=== PATIENT | male | born 1930 | race Caucasian/White ===

== ENCOUNTER 2018-04-06 15:41 | Inpatient (IN) | payer MEDICARE, BC ==
[2018-04-06] MEDS ORDERED: LACTULOSE 30ML CUP PO (16:30)
[2018-04-06] MEDS ORDERED: BISACODYL 10 MG SUPP PR (16:30)
[2018-04-06] MEDS ORDERED: MAGNESIUM HYDROXIDE 30ML CUP PO (16:30)
[2018-04-06] MEDS ORDERED: PENDING SANTYL ORDER FOR WOUND CARE XX (17:00)
[2018-04-06] MEDS ORDERED: IPRATROPIUM (NEB) 0.5 MG/2.5 ML AMP HHN (20:00)
[2018-04-06] MEDS ORDERED: ALBUTEROL 0.083% (NEB) 2.5 MG/3 ML AMP HHN (20:00)
[2018-04-06] MEDS: CALCIUM/VITAMIN D (500/200) TAB PO (20:49)
[2018-04-06] MEDS ORDERED: SENNA TAB PO (21:00)
[2018-04-06] MEDS ORDERED: DOCUSATE SODIUM 100 MG CAP PO (21:00)
[2018-04-07] MEDS: PANTOPRAZOLE (EC) 40 MG TAB PO (06:48)
[2018-04-07] MEDS: BICALUTAMIDE 50 MG TAB PO ×3 (08:26→12:59)
[2018-04-07 08:35] LABS: ADD MAN DIFF? NO
[2018-04-07 08:39] LABS: WHITE BLOOD COUNT 13.5 10^3/ul (4.8-10.8)
[2018-04-07 08:39] LABS: BASOPHIL # 0.1 10^3/ul (0.0-0.1); BASOPHILS % 0.4 % (0.0-2.0); EOSINOPHILS # 0.2 10^3/ul (0.0-0.5); EOSINOPHILS % 1.3 % (0.0-7.0); HEMATOCRIT 24.4 % (42.0-52.0); HEMOGLOBIN 7.8 g/dl (14.0-18.0); LYMPHOCYTES # 2.3 10^3/ul (0.8-2.9); LYMPHOCYTES % 17.2 % (15.0-51.0); MEAN CORPUSCULAR VOLUME 90.7 fl (82.0-101.0); MEAN PLATELET VOLUME 9.9 fl (7.4-10.4); MONOCYTE # 1.4 10^3/ul (0.3-0.9); MONOCYTES % 10.2 % (0.0-11.0); NEUTROPHIL # 9.3 10^3/ul (1.6-7.5); NEUTROPHILS % 69.3 % (39.0-77.0); PLATELET COUNT 240 10^3/UL (140-415); RED BLOOD COUNT 2.69 10^6/ul (4.70-6.10); RED CELL DISTRIBUTION WIDTH 16.2 % (11.5-14.5)
[2018-04-07 09:00] LABS: ALANINE AMINOTRANSFERASE 21 IU/L (13-69); ALBUMIN 3.2 g/dl (3.3-4.9); ALKALINE PHOSPHATASE 41 IU/L (42-121); ANION GAP 12 (8-16); ASPARTATE AMINO TRANSFERASE 19 IU/L (15-46); BILIRUBIN,INDIRECT 0.7 mg/dl (0-1.1); BILIRUBIN,TOTAL 0.7 mg/dl (0.2-1.3); BLOOD UREA NITROGEN 55 mg/dl (7-20); CALCIUM 9.5 mg/dl (8.4-10.2); CARBON DIOXIDE 25 mmol/L (21-31); CHLORIDE 103 mmol/L (97-110); CREATININE 2.77 mg/dl (0.61-1.24); GLUCOSE 93 mg/dl (70-220); POTASSIUM 3.9 mmol/L (3.5-5.1); SODIUM 136 mmol/L (135-144); TOTAL PROTEIN 6.4 g/dl (6.1-8.1)
[2018-04-07] MEDS: AZITHROMYCIN 250 MG TAB PO ×2 (09:00→13:01)
[2018-04-07] MEDS: ATORVASTATIN 20 MG TAB PO (09:15)
[2018-04-07] MEDS: FINASTERIDE 5 MG TAB PO (09:15)
[2018-04-07] MEDS: CLOPIDOGREL 75 MG TAB PO (09:15)
[2018-04-07] MEDS: CYANOCOBALAMIN 500 MCG TAB PO (09:15)
[2018-04-07] MEDS: ASPIRIN 81 MG TAB PO (09:15)
[2018-04-07] MEDS: ISOSORBIDE MONONITRATE(SR)60 MG TAB PO (09:15)
[2018-04-07] MEDS: OXYBUTYNIN (XL) 5 MG TAB PO (09:15)
[2018-04-07] MEDS: CALCIUM/VITAMIN D (500/200) TAB PO ×2 (09:16→21:06)
[2018-04-07] MEDS: SOD CHLORIDE 0.9% 500 ML IV (10:58)
[2018-04-07 19:58] LABS: HEPATITIS B SURFACE ANTIGEN NEGATIVE (NEGATIVE)
[2018-04-07 21:43] LABS: HEPATITIS B SURFACE ANTIBODY POSITIVE (NEGATIVE)
[2018-04-07 22:42] LABS: ADD UMIC NO; UR ASCORBIC ACID NEGATIVE (NEGATIVE); UR BILIRUBIN (Dip) NEGATIVE (NEGATIVE); UR BLOOD (Dip) NEGATIVE (NEGATIVE); UR CLARITY CLEAR (CLEAR); UR COLOR YELLOW (YELLOW); UR GLUCOSE (Dip) NEGATIVE (NEGATIVE); UR KETONES (Dip) NEGATIVE (NEGATIVE); UR LEUKOCYTE ESTERASE (Dip) NEGATIVE Leu/ul (NEGATIVE); UR NITRITE (Dip) NEGATIVE (NEGATIVE); UR SPECIFIC GRAVITY (Dip) 1.009 (1.003-1.030); UR TOTAL PROTEIN (Dip) NEGATIVE (NEGATIVE); UR UROBILINOGEN (Dip) NEGATIVE (NEGATIVE)
[2018-04-08] MEDS: PANTOPRAZOLE (EC) 40 MG TAB PO (05:40)
[2018-04-08 07:01] LABS: ADD MAN DIFF? NO
[2018-04-08 07:04] LABS: WHITE BLOOD COUNT 12.9 10^3/ul (4.8-10.8)
[2018-04-08 07:04] LABS: ABNORMAL IP MESSAGE 1; BASOPHILS % 0.3 % (0.0-2.0); EOSINOPHILS # 0.2 10^3/ul (0.0-0.5); EOSINOPHILS % 1.6 % (0.0-7.0); HEMATOCRIT 20.9 % (42.0-52.0); LYMPHOCYTES # 2.3 10^3/ul (0.8-2.9); LYMPHOCYTES % 17.9 % (15.0-51.0); MEAN CORPUSCULAR HEMOGLOBIN 28.8 pg (29.0-33.0); MEAN CORPUSCULAR HGB CONC 32.5 g/dl (32.0-37.0); MEAN CORPUSCULAR VOLUME 88.6 fl (82.0-101.0); MEAN PLATELET VOLUME 9.8 fl (7.4-10.4); MONOCYTE # 1.2 10^3/ul (0.3-0.9); MONOCYTES % 9.5 % (0.0-11.0); NEUTROPHIL # 8.8 10^3/ul (1.6-7.5); NEUTROPHILS % 68.5 % (39.0-77.0); PLATELET COUNT 238 10^3/UL (140-415); POSITIVE DIFF @See below; RED BLOOD COUNT 2.36 10^6/ul (4.70-6.10); RED CELL DISTRIBUTION WIDTH 15.9 % (11.5-14.5)
[2018-04-08 07:22] LABS: HEMOGLOBIN 6.8 g/dl (14.0-18.0)
[2018-04-08 07:38] LABS: ANION GAP 13 (8-16); BLOOD UREA NITROGEN 65 mg/dl (7-20); CALCIUM 9.5 mg/dl (8.4-10.2); CARBON DIOXIDE 25 mmol/L (21-31); CHLORIDE 102 mmol/L (97-110); CREATININE 2.92 mg/dl (0.61-1.24); GLUCOSE 97 mg/dl (70-220); MAGNESIUM 1.9 mg/dl (1.7-2.5); PHOSPHORUS 3.9 mg/dl (2.5-4.9); POTASSIUM 3.7 mmol/L (3.5-5.1); SODIUM 136 mmol/L (135-144)
[2018-04-08 09:00] LABS: HEMATOCRIT 22.8 % (42.0-52.0); HEMOGLOBIN 7.3 g/dl (14.0-18.0)
[2018-04-08] MEDS: AZITHROMYCIN 250 MG TAB PO (09:28)
[2018-04-08] MEDS: CALCIUM/VITAMIN D (500/200) TAB PO ×2 (09:29→20:56)
[2018-04-08] MEDS: CLOPIDOGREL 75 MG TAB PO (09:29)
[2018-04-08] MEDS: CYANOCOBALAMIN 500 MCG TAB PO (09:29)
[2018-04-08] MEDS: ASPIRIN 81 MG TAB PO (09:29)
[2018-04-08] MEDS: ATORVASTATIN 20 MG TAB PO (09:29)
[2018-04-08] MEDS: FINASTERIDE 5 MG TAB PO (09:29)
[2018-04-08] MEDS: OXYBUTYNIN (XL) 5 MG TAB PO (09:29)
[2018-04-08] MEDS: BICALUTAMIDE 50 MG TAB PO (09:30)
[2018-04-08] MEDS: ISOSORBIDE MONONITRATE(SR)60 MG TAB PO (09:35)
[2018-04-08 09:55] LABS: IRON 52 ug/dl (35-150)
[2018-04-08 10:04] LABS: % IRON SATURATION 24 % SAT (22-52); TOTAL IRON BINDING CAPACITY 219 ug/dl (241-421)
[2018-04-08 11:21] LABS: ADD UMIC NO; UR ASCORBIC ACID NEGATIVE (NEGATIVE); UR BILIRUBIN (Dip) NEGATIVE (NEGATIVE); UR BLOOD (Dip) NEGATIVE (NEGATIVE); UR CLARITY CLEAR (CLEAR); UR COLOR STRAW (YELLOW); UR GLUCOSE (Dip) NEGATIVE (NEGATIVE); UR KETONES (Dip) NEGATIVE (NEGATIVE); UR LEUKOCYTE ESTERASE (Dip) NEGATIVE Leu/ul (NEGATIVE); UR NITRITE (Dip) NEGATIVE (NEGATIVE); UR SPECIFIC GRAVITY (Dip) 1.008 (1.003-1.030); UR TOTAL PROTEIN (Dip) NEGATIVE (NEGATIVE); UR UROBILINOGEN (Dip) NEGATIVE (NEGATIVE)
[2018-04-08] MEDS: EPOETIN 10000 UNITS/1 ML INJ (ESRD) SC (12:37)
[2018-04-08] MEDS: ACETAMINOPHEN 325 MG TAB PO (14:26)
[2018-04-08] MEDS ORDERED: ALBUMIN HUMAN 25% 100 ML IV (17:00)
[2018-04-08] MEDS: HEPARIN 1000 UNITS/ML 10 ML INJ CATHETER (20:43)
[2018-04-09] MEDS: PANTOPRAZOLE (EC) 40 MG TAB PO (06:21)
[2018-04-09 06:52] LABS: ADD MAN DIFF? NO
[2018-04-09 07:02] LABS: BASOPHIL # 0.1 10^3/ul (0.0-0.1); BASOPHILS % 0.4 % (0.0-2.0); EOSINOPHILS # 0.2 10^3/ul (0.0-0.5); EOSINOPHILS % 1.2 % (0.0-7.0); HEMATOCRIT 22.7 % (42.0-52.0); HEMOGLOBIN 7.3 g/dl (14.0-18.0); LYMPHOCYTES # 1.9 10^3/ul (0.8-2.9); LYMPHOCYTES % 15.3 % (15.0-51.0); MEAN CORPUSCULAR HEMOGLOBIN 28.7 pg (29.0-33.0); MEAN CORPUSCULAR HGB CONC 32.2 g/dl (32.0-37.0); MEAN CORPUSCULAR VOLUME 89.4 fl (82.0-101.0); MEAN PLATELET VOLUME 9.6 fl (7.4-10.4); MONOCYTE # 1.1 10^3/ul (0.3-0.9); NEUTROPHIL # 8.9 10^3/ul (1.6-7.5); NEUTROPHILS % 70.8 % (39.0-77.0); NUCLEATED RED BLOOD CELLS% 0.2 /100WBC (0.0-0.0); PLATELET COUNT 254 10^3/UL (140-415); RED BLOOD COUNT 2.54 10^6/ul (4.70-6.10); RED CELL DISTRIBUTION WIDTH 16.1 % (11.5-14.5)
[2018-04-09 07:02] LABS: WHITE BLOOD COUNT 12.5 10^3/ul (4.8-10.8)
[2018-04-09 08:03] LABS: ANION GAP 11 (8-16); BLOOD UREA NITROGEN 32 mg/dl (7-20); CALCIUM 9.2 mg/dl (8.4-10.2); CARBON DIOXIDE 29 mmol/L (21-31); CHLORIDE 101 mmol/L (97-110); GLUCOSE 96 mg/dl (70-220); MAGNESIUM 1.9 mg/dl (1.7-2.5); PHOSPHORUS 2.9 mg/dl (2.5-4.9); POTASSIUM 3.7 mmol/L (3.5-5.1); SODIUM 137 mmol/L (135-144)
[2018-04-09] MEDS: CLOPIDOGREL 75 MG TAB PO (08:37)
[2018-04-09] MEDS: ACETAMINOPHEN 325 MG TAB PO ×2 (08:37→21:08)
[2018-04-09] MEDS: ATORVASTATIN 20 MG TAB PO (08:37)
[2018-04-09] MEDS: ASPIRIN 81 MG TAB PO (08:37)
[2018-04-09] MEDS: BICALUTAMIDE 50 MG TAB PO (08:38)
[2018-04-09] MEDS: ISOSORBIDE MONONITRATE(SR)60 MG TAB PO (08:38)
[2018-04-09] MEDS: CALCIUM/VITAMIN D (500/200) TAB PO ×2 (08:38→21:11)
[2018-04-09] MEDS: FINASTERIDE 5 MG TAB PO (08:38)
[2018-04-09] MEDS: CYANOCOBALAMIN 500 MCG TAB PO (08:39)
[2018-04-09] MEDS: AZITHROMYCIN 250 MG TAB PO (08:39)
[2018-04-09] MEDS: OXYBUTYNIN (XL) 5 MG TAB PO (08:39)
[2018-04-09] MEDS: FLUCONAZOLE 100 MG TAB PO (12:24)
[2018-04-09] MEDS: LIDOCAINE 5% PATCH TD (12:24)
[2018-04-09 17:13] LABS: OCCULT BLOOD STOOL NEGATIVE (NEGATIVE)
[2018-04-10] MEDS: PANTOPRAZOLE (EC) 40 MG TAB PO (06:22)
[2018-04-10] MEDS: ASPIRIN 81 MG TAB PO (08:46)
[2018-04-10] MEDS: LIDOCAINE 5% PATCH TD (08:46)
[2018-04-10] MEDS: ISOSORBIDE MONONITRATE(SR)60 MG TAB PO (08:47)
[2018-04-10] MEDS: BICALUTAMIDE 50 MG TAB PO (08:47)
[2018-04-10] MEDS: OXYBUTYNIN (XL) 5 MG TAB PO (08:47)
[2018-04-10] MEDS: CYANOCOBALAMIN 500 MCG TAB PO (08:47)
[2018-04-10] MEDS: FINASTERIDE 5 MG TAB PO (08:47)
[2018-04-10] MEDS: FLUCONAZOLE 100 MG TAB PO (08:47)
[2018-04-10] MEDS: ATORVASTATIN 20 MG TAB PO (08:47)
[2018-04-10] MEDS: CALCIUM/VITAMIN D (500/200) TAB PO ×2 (08:48→19:51)
[2018-04-10] MEDS: CLOPIDOGREL 75 MG TAB PO (08:48)
[2018-04-10] MEDS: AZITHROMYCIN 250 MG TAB PO (08:48)
[2018-04-10] MEDS: ACETAMINOPHEN 325 MG TAB PO (10:17)
[2018-04-10] MEDS: HEPARIN 1000 UNITS/ML 10 ML INJ CATHETER (23:57)
[2018-04-11] MEDS: PANTOPRAZOLE (EC) 40 MG TAB PO (06:54)
[2018-04-11] MEDS: CYANOCOBALAMIN 500 MCG TAB PO (09:00)
[2018-04-11] MEDS: LIDOCAINE 5% PATCH TD (09:33)
[2018-04-11] MEDS: ISOSORBIDE MONONITRATE(SR)60 MG TAB PO (09:34)
[2018-04-11] MEDS: CALCIUM/VITAMIN D (500/200) TAB PO ×2 (09:34→20:58)
[2018-04-11] MEDS: FINASTERIDE 5 MG TAB PO (09:34)
[2018-04-11] MEDS: BICALUTAMIDE 50 MG TAB PO (09:34)
[2018-04-11] MEDS: ATORVASTATIN 20 MG TAB PO (09:34)
[2018-04-11] MEDS: CLOPIDOGREL 75 MG TAB PO (09:34)
[2018-04-11] MEDS: OXYBUTYNIN (XL) 5 MG TAB PO (09:35)
[2018-04-11] MEDS: ASPIRIN 81 MG TAB PO (09:35)
[2018-04-11] MEDS: FLUCONAZOLE 100 MG TAB PO (09:35)
[2018-04-12] MEDS: PANTOPRAZOLE (EC) 40 MG TAB PO (06:51)
[2018-04-12 08:44] LABS: ADD MAN DIFF? NO
[2018-04-12 08:48] LABS: BASOPHIL # 0.1 10^3/ul (0.0-0.1); BASOPHILS % 0.3 % (0.0-2.0); EOSINOPHILS # 0.3 10^3/ul (0.0-0.5); HEMATOCRIT 25.9 % (42.0-52.0); HEMOGLOBIN 8.1 g/dl (14.0-18.0); LYMPHOCYTES # 2.4 10^3/ul (0.8-2.9); LYMPHOCYTES % 15.6 % (15.0-51.0); MEAN CORPUSCULAR HEMOGLOBIN 29.1 pg (29.0-33.0); MEAN CORPUSCULAR HGB CONC 31.3 g/dl (32.0-37.0); MEAN CORPUSCULAR VOLUME 93.2 fl (82.0-101.0); MEAN PLATELET VOLUME 9.3 fl (7.4-10.4); MONOCYTES % 6.6 % (0.0-11.0); NEUTROPHILS % 70.7 % (39.0-77.0); PLATELET COUNT 319 10^3/UL (140-415); RED BLOOD COUNT 2.78 10^6/ul (4.70-6.10)
[2018-04-12 08:48] LABS: WHITE BLOOD COUNT 15.5 10^3/ul (4.8-10.8)
[2018-04-12 09:12] LABS: ANION GAP 12 (8-16); BLOOD UREA NITROGEN 35 mg/dl (7-20); CALCIUM 9.8 mg/dl (8.4-10.2); CARBON DIOXIDE 29 mmol/L (21-31); CHLORIDE 103 mmol/L (97-110); CREATININE 2.38 mg/dl (0.61-1.24); GLUCOSE 92 mg/dl (70-220); PHOSPHORUS 3.3 mg/dl (2.5-4.9); POTASSIUM 3.9 mmol/L (3.5-5.1); SODIUM 140 mmol/L (135-144)
[2018-04-12] MEDS: ACETAMINOPHEN 325 MG TAB PO (09:26)
[2018-04-12] MEDS: OXYBUTYNIN (XL) 5 MG TAB PO (09:54)
[2018-04-12] MEDS: FLUCONAZOLE 100 MG TAB PO (09:54)
[2018-04-12] MEDS: ATORVASTATIN 20 MG TAB PO (09:54)
[2018-04-12] MEDS: CLOPIDOGREL 75 MG TAB PO (09:54)
[2018-04-12] MEDS: ASPIRIN 81 MG TAB PO (09:55)
[2018-04-12] MEDS: FINASTERIDE 5 MG TAB PO (09:56)
[2018-04-12] MEDS: BICALUTAMIDE 50 MG TAB PO (09:57)
[2018-04-12] MEDS: CALCIUM/VITAMIN D (500/200) TAB PO ×2 (09:57→20:57)
[2018-04-12] MEDS: ISOSORBIDE MONONITRATE(SR)60 MG TAB PO (09:58)
[2018-04-12] MEDS: LIDOCAINE 5% PATCH TD (10:02)
[2018-04-12] MEDS: CYANOCOBALAMIN 500 MCG TAB PO (15:31)
[2018-04-13] MEDS: PANTOPRAZOLE (EC) 40 MG TAB PO (06:59)
[2018-04-13 07:30] LABS: ADD MAN DIFF? NO
[2018-04-13 07:35] LABS: BASOPHILS % 0.3 % (0.0-2.0); EOSINOPHILS # 0.3 10^3/ul (0.0-0.5); EOSINOPHILS % 1.9 % (0.0-7.0); HEMATOCRIT 22.9 % (42.0-52.0); HEMOGLOBIN 7.1 g/dl (14.0-18.0); LYMPHOCYTES # 2.1 10^3/ul (0.8-2.9); LYMPHOCYTES % 14.4 % (15.0-51.0); MEAN CORPUSCULAR HEMOGLOBIN 29.2 pg (29.0-33.0); MEAN CORPUSCULAR VOLUME 94.2 fl (82.0-101.0); MEAN PLATELET VOLUME 9.1 fl (7.4-10.4); MONOCYTES % 6.8 % (0.0-11.0); NEUTROPHIL # 10.5 10^3/ul (1.6-7.5); NEUTROPHILS % 72.2 % (39.0-77.0); PLATELET COUNT 260 10^3/UL (140-415); RED BLOOD COUNT 2.43 10^6/ul (4.70-6.10); RED CELL DISTRIBUTION WIDTH 17.8 % (11.5-14.5)
[2018-04-13 07:35] LABS: WHITE BLOOD COUNT 14.6 10^3/ul (4.8-10.8)
[2018-04-13 08:11] LABS: ANION GAP 9 (8-16); BLOOD UREA NITROGEN 35 mg/dl (7-20); CALCIUM 9.4 mg/dl (8.4-10.2); CARBON DIOXIDE 29 mmol/L (21-31); CHLORIDE 105 mmol/L (97-110); CREATININE 2.46 mg/dl (0.61-1.24); GLUCOSE 92 mg/dl (70-220); MAGNESIUM 1.9 mg/dl (1.7-2.5); PHOSPHORUS 3.7 mg/dl (2.5-4.9); SODIUM 139 mmol/L (135-144)
[2018-04-13] MEDS: LIDOCAINE 5% PATCH TD (08:50)
[2018-04-13] MEDS: OXYBUTYNIN (XL) 5 MG TAB PO (08:50)
[2018-04-13] MEDS: FINASTERIDE 5 MG TAB PO (08:51)
[2018-04-13] MEDS: CYANOCOBALAMIN 500 MCG TAB PO (08:51)
[2018-04-13] MEDS: ISOSORBIDE MONONITRATE(SR)60 MG TAB PO (08:51)
[2018-04-13] MEDS: CLOPIDOGREL 75 MG TAB PO (08:51)
[2018-04-13] MEDS: FLUCONAZOLE 100 MG TAB PO (08:51)
[2018-04-13] MEDS: CALCIUM/VITAMIN D (500/200) TAB PO ×2 (08:51→21:00)
[2018-04-13] MEDS: ATORVASTATIN 20 MG TAB PO (08:51)
[2018-04-13] MEDS: ASPIRIN 81 MG TAB PO (08:51)
[2018-04-13] MEDS: BICALUTAMIDE 50 MG TAB PO (08:52)
[2018-04-13] MEDS: EPOETIN 10000 UNITS/1 ML INJ (ESRD) SC (10:13)
[2018-04-14] MEDS: PANTOPRAZOLE (EC) 40 MG TAB PO (06:26)
[2018-04-14 08:45] LABS: ADD MAN DIFF? NO
[2018-04-14] MEDS: OXYBUTYNIN (XL) 5 MG TAB PO (08:51)
[2018-04-14 08:53] LABS: WHITE BLOOD COUNT 12.4 10^3/ul (4.8-10.8)
[2018-04-14 08:53] LABS: BASOPHILS % 0.3 % (0.0-2.0); EOSINOPHILS # 0.2 10^3/ul (0.0-0.5); EOSINOPHILS % 1.5 % (0.0-7.0); HEMATOCRIT 24.1 % (42.0-52.0); HEMOGLOBIN 7.2 g/dl (14.0-18.0); LYMPHOCYTES # 1.8 10^3/ul (0.8-2.9); LYMPHOCYTES % 14.8 % (15.0-51.0); MEAN CORPUSCULAR HGB CONC 29.9 g/dl (32.0-37.0); MEAN CORPUSCULAR VOLUME 93.8 fl (82.0-101.0); MEAN PLATELET VOLUME 9.6 fl (7.4-10.4); MONOCYTE # 0.9 10^3/ul (0.3-0.9); MONOCYTES % 7.6 % (0.0-11.0); NEUTROPHIL # 8.9 10^3/ul (1.6-7.5); NEUTROPHILS % 71.4 % (39.0-77.0); PLATELET COUNT 245 10^3/UL (140-415); RED BLOOD COUNT 2.57 10^6/ul (4.70-6.10); RED CELL DISTRIBUTION WIDTH 18.4 % (11.5-14.5)
[2018-04-14] MEDS: CLOPIDOGREL 75 MG TAB PO (08:54)
[2018-04-14] MEDS: LIDOCAINE 5% PATCH TD (08:54)
[2018-04-14] MEDS: BICALUTAMIDE 50 MG TAB PO (08:56)
[2018-04-14] MEDS: ASPIRIN 81 MG TAB PO (08:56)
[2018-04-14] MEDS: ISOSORBIDE MONONITRATE(SR)60 MG TAB PO (08:56)
[2018-04-14] MEDS: CALCIUM/VITAMIN D (500/200) TAB PO ×2 (08:57→20:43)
[2018-04-14] MEDS: CYANOCOBALAMIN 500 MCG TAB PO (08:57)
[2018-04-14] MEDS: FINASTERIDE 5 MG TAB PO (08:58)
[2018-04-14] MEDS: FLUCONAZOLE 100 MG TAB PO (08:59)
[2018-04-14] MEDS: ATORVASTATIN 20 MG TAB PO (09:07)
[2018-04-14 09:08] LABS: ANION GAP 10 (8-16); BLOOD UREA NITROGEN 38 mg/dl (7-20); CALCIUM 9.7 mg/dl (8.4-10.2); CARBON DIOXIDE 28 mmol/L (21-31); CHLORIDE 106 mmol/L (97-110); CREATININE 2.62 mg/dl (0.61-1.24); GLUCOSE 92 mg/dl (70-220); MAGNESIUM 1.9 mg/dl (1.7-2.5); POTASSIUM 4.4 mmol/L (3.5-5.1); SODIUM 140 mmol/L (135-144)
[2018-04-15] MEDS: PANTOPRAZOLE (EC) 40 MG TAB PO (06:33)
[2018-04-15 08:23] LABS: ADD MAN DIFF? NO
[2018-04-15 08:29] LABS: WHITE BLOOD COUNT 12.8 10^3/ul (4.8-10.8)
[2018-04-15 08:29] LABS: BASOPHILS % 0.3 % (0.0-2.0); EOSINOPHILS # 0.2 10^3/ul (0.0-0.5); EOSINOPHILS % 1.8 % (0.0-7.0); HEMATOCRIT 24.8 % (42.0-52.0); HEMOGLOBIN 7.5 g/dl (14.0-18.0); LYMPHOCYTES # 1.7 10^3/ul (0.8-2.9); LYMPHOCYTES % 13.6 % (15.0-51.0); MEAN CORPUSCULAR HEMOGLOBIN 28.5 pg (29.0-33.0); MEAN CORPUSCULAR HGB CONC 30.2 g/dl (32.0-37.0); MEAN CORPUSCULAR VOLUME 94.3 fl (82.0-101.0); MEAN PLATELET VOLUME 9.4 fl (7.4-10.4); MONOCYTES % 7.6 % (0.0-11.0); NEUTROPHIL # 9.5 10^3/ul (1.6-7.5); PLATELET COUNT 234 10^3/UL (140-415); RED BLOOD COUNT 2.63 10^6/ul (4.70-6.10); RED CELL DISTRIBUTION WIDTH 18.6 % (11.5-14.5)
[2018-04-15 08:53] LABS: ANION GAP 10 (8-16); BLOOD UREA NITROGEN 37 mg/dl (7-20); CALCIUM 9.9 mg/dl (8.4-10.2); CARBON DIOXIDE 27 mmol/L (21-31); CHLORIDE 106 mmol/L (97-110); CREATININE 2.69 mg/dl (0.61-1.24); GLUCOSE 92 mg/dl (70-220); POTASSIUM 4.4 mmol/L (3.5-5.1); SODIUM 139 mmol/L (135-144)
[2018-04-15] MEDS: LIDOCAINE 5% PATCH TD (09:29)
[2018-04-15] MEDS: FINASTERIDE 5 MG TAB PO (09:29)
[2018-04-15] MEDS: BICALUTAMIDE 50 MG TAB PO (09:29)
[2018-04-15] MEDS: ISOSORBIDE MONONITRATE(SR)60 MG TAB PO (09:30)
[2018-04-15] MEDS: CYANOCOBALAMIN 500 MCG TAB PO (09:30)
[2018-04-15] MEDS: CLOPIDOGREL 75 MG TAB PO (09:30)
[2018-04-15] MEDS: ATORVASTATIN 20 MG TAB PO (09:30)
[2018-04-15] MEDS: OXYBUTYNIN (XL) 5 MG TAB PO (09:30)
[2018-04-15] MEDS: ASPIRIN 81 MG TAB PO (09:30)
[2018-04-15] MEDS: CALCIUM/VITAMIN D (500/200) TAB PO ×2 (09:31→22:33)
[2018-04-15] MEDS: FLUCONAZOLE 100 MG TAB PO (09:31)
[2018-04-16] MEDS: PANTOPRAZOLE (EC) 40 MG TAB PO (06:29)
[2018-04-16 08:19] LABS: ANION GAP 9 (8-16); BLOOD UREA NITROGEN 41 mg/dl (7-20); CALCIUM 9.8 mg/dl (8.4-10.2); CARBON DIOXIDE 27 mmol/L (21-31); CHLORIDE 108 mmol/L (97-110); CREATININE 2.76 mg/dl (0.61-1.24); GLUCOSE 94 mg/dl (70-220); MAGNESIUM 1.9 mg/dl (1.7-2.5); POTASSIUM 4.4 mmol/L (3.5-5.1); SODIUM 140 mmol/L (135-144)
[2018-04-16] MEDS: ASPIRIN 81 MG TAB PO (09:21)
[2018-04-16] MEDS: CLOPIDOGREL 75 MG TAB PO (09:21)
[2018-04-16] MEDS: FINASTERIDE 5 MG TAB PO (09:21)
[2018-04-16] MEDS: OXYBUTYNIN (XL) 5 MG TAB PO (09:24)
[2018-04-16] MEDS: ATORVASTATIN 20 MG TAB PO (09:24)
[2018-04-16] MEDS: BICALUTAMIDE 50 MG TAB PO (09:24)
[2018-04-16] MEDS: FLUCONAZOLE 100 MG TAB PO (09:24)
[2018-04-16] MEDS: CALCIUM/VITAMIN D (500/200) TAB PO ×2 (09:24→20:44)
[2018-04-16] MEDS: ISOSORBIDE MONONITRATE(SR)60 MG TAB PO (09:24)
[2018-04-16] MEDS: LIDOCAINE 5% PATCH TD (09:25)
[2018-04-16] MEDS: CYANOCOBALAMIN 500 MCG TAB PO (09:25)
[2018-04-17] MEDS: PANTOPRAZOLE (EC) 40 MG TAB PO (06:47)
[2018-04-17 07:06] LABS: ADD MAN DIFF? NO
[2018-04-17 07:08] LABS: WHITE BLOOD COUNT 12.3 10^3/ul (4.8-10.8)
[2018-04-17 07:09] LABS: BASOPHIL # 0.1 10^3/ul (0.0-0.1); BASOPHILS % 0.4 % (0.0-2.0); EOSINOPHILS # 0.2 10^3/ul (0.0-0.5); EOSINOPHILS % 1.5 % (0.0-7.0); HEMATOCRIT 26.7 % (42.0-52.0); HEMOGLOBIN 8.2 g/dl (14.0-18.0); LYMPHOCYTES # 1.8 10^3/ul (0.8-2.9); LYMPHOCYTES % 14.8 % (15.0-51.0); MEAN CORPUSCULAR HEMOGLOBIN 28.9 pg (29.0-33.0); MEAN CORPUSCULAR HGB CONC 30.7 g/dl (32.0-37.0); MEAN PLATELET VOLUME 9.6 fl (7.4-10.4); MONOCYTE # 0.8 10^3/ul (0.3-0.9); MONOCYTES % 6.8 % (0.0-11.0); NEUTROPHIL # 9.2 10^3/ul (1.6-7.5); NEUTROPHILS % 74.7 % (39.0-77.0); PLATELET COUNT 240 10^3/UL (140-415); RED BLOOD COUNT 2.84 10^6/ul (4.70-6.10); RED CELL DISTRIBUTION WIDTH 18.8 % (11.5-14.5)
[2018-04-17 07:38] LABS: ANION GAP 11 (8-16); BLOOD UREA NITROGEN 42 mg/dl (7-20); CALCIUM 9.9 mg/dl (8.4-10.2); CARBON DIOXIDE 25 mmol/L (21-31); CHLORIDE 109 mmol/L (97-110); CREATININE 2.75 mg/dl (0.61-1.24); GLUCOSE 94 mg/dl (70-220); POTASSIUM 4.3 mmol/L (3.5-5.1); SODIUM 141 mmol/L (135-144)
[2018-04-17] MEDS: FINASTERIDE 5 MG TAB PO (09:06)
[2018-04-17] MEDS: OXYBUTYNIN (XL) 5 MG TAB PO (09:07)
[2018-04-17] MEDS: ATORVASTATIN 20 MG TAB PO (09:09)
[2018-04-17] MEDS: ASPIRIN 81 MG TAB PO (09:09)
[2018-04-17] MEDS: BICALUTAMIDE 50 MG TAB PO (09:09)
[2018-04-17] MEDS: LIDOCAINE 5% PATCH TD (09:10)
[2018-04-17] MEDS: CYANOCOBALAMIN 500 MCG TAB PO (09:10)
[2018-04-17] MEDS: CLOPIDOGREL 75 MG TAB PO (09:10)
[2018-04-17] MEDS: ISOSORBIDE MONONITRATE(SR)60 MG TAB PO (09:12)
[2018-04-17] MEDS: CALCIUM/VITAMIN D (500/200) TAB PO ×2 (09:17→20:54)
[2018-04-18] MEDS: PANTOPRAZOLE (EC) 40 MG TAB PO (06:29)
[2018-04-18 07:25] LABS: ANION GAP 10 (8-16); BLOOD UREA NITROGEN 44 mg/dl (7-20); CARBON DIOXIDE 23 mmol/L (21-31); CHLORIDE 110 mmol/L (97-110); CREATININE 2.61 mg/dl (0.61-1.24); GLUCOSE 94 mg/dl (70-220); POTASSIUM 4.4 mmol/L (3.5-5.1); SODIUM 139 mmol/L (135-144)
[2018-04-18 07:30] LABS: CALCIUM 9.7 mg/dl (8.4-10.2)
[2018-04-18] MEDS: ISOSORBIDE MONONITRATE(SR)60 MG TAB PO (09:00)
[2018-04-18] MEDS: OXYBUTYNIN (XL) 5 MG TAB PO (09:00)
[2018-04-18] MEDS: CLOPIDOGREL 75 MG TAB PO (09:52)
[2018-04-18] MEDS: FINASTERIDE 5 MG TAB PO (09:54)
[2018-04-18] MEDS: ATORVASTATIN 20 MG TAB PO (09:54)
[2018-04-18] MEDS: CALCIUM/VITAMIN D (500/200) TAB PO ×2 (09:54→20:43)
[2018-04-18] MEDS: ASPIRIN 81 MG TAB PO (09:54)
[2018-04-18] MEDS: BICALUTAMIDE 50 MG TAB PO (10:49)
[2018-04-18] MEDS: LIDOCAINE 5% PATCH TD (10:51)
[2018-04-18] MEDS: LIDOCAINE 1% (MPF) 5 ML VIAL (11:07)
[2018-04-19] MEDS: PANTOPRAZOLE (EC) 40 MG TAB PO (06:09)
[2018-04-19] MEDS: ASPIRIN 81 MG TAB PO (08:18)
[2018-04-19] MEDS: ATORVASTATIN 20 MG TAB PO (08:18)
[2018-04-19] MEDS: LIDOCAINE 5% PATCH TD (08:18)
[2018-04-19] MEDS: OXYBUTYNIN (XL) 5 MG TAB PO (08:18)
[2018-04-19] MEDS: FINASTERIDE 5 MG TAB PO (08:18)
[2018-04-19] MEDS: CLOPIDOGREL 75 MG TAB PO (08:19)
[2018-04-19] MEDS: ISOSORBIDE MONONITRATE(SR)60 MG TAB PO (08:19)
[2018-04-19] MEDS: CALCIUM/VITAMIN D (500/200) TAB PO ×2 (08:19→20:15)
[2018-04-19] MEDS: BICALUTAMIDE 50 MG TAB PO (08:26)
[2018-04-19] MEDS: CYANOCOBALAMIN 500 MCG TAB PO (10:00)
[2018-04-19] MEDS: ACETAMINOPHEN 325 MG TAB PO (20:46)
[2018-04-20] MEDS: PANTOPRAZOLE (EC) 40 MG TAB PO (06:08)
[2018-04-20] MEDS: ISOSORBIDE MONONITRATE(SR)60 MG TAB PO (08:31)
[2018-04-20] MEDS: BICALUTAMIDE 50 MG TAB PO (08:34)
[2018-04-20] MEDS: FINASTERIDE 5 MG TAB PO (09:00)
[2018-04-20] MEDS: LIDOCAINE 5% PATCH TD (09:00)
[2018-04-20] MEDS: CYANOCOBALAMIN 500 MCG TAB PO (09:00)
[2018-04-20] MEDS: ASPIRIN 81 MG TAB PO (09:00)
[2018-04-20] MEDS: CALCIUM/VITAMIN D (500/200) TAB PO ×2 (18:43→20:37)
[2018-04-20] MEDS: ATORVASTATIN 20 MG TAB PO (18:43)
[2018-04-20] MEDS: OXYBUTYNIN (XL) 5 MG TAB PO (18:43)
[2018-04-20] MEDS: CLOPIDOGREL 75 MG TAB PO (18:47)
[2018-04-21] MEDS: PANTOPRAZOLE (EC) 40 MG TAB PO (06:26)
[2018-04-21] MEDS: ASPIRIN 81 MG TAB PO ×3 (08:47→09:04)
[2018-04-21] MEDS: LIDOCAINE 5% PATCH TD (08:47)
[2018-04-21] MEDS: ISOSORBIDE MONONITRATE(SR)60 MG TAB PO (08:48)
[2018-04-21] MEDS: OXYBUTYNIN (XL) 5 MG TAB PO (08:50)
[2018-04-21] MEDS: FINASTERIDE 5 MG TAB PO (08:50)
[2018-04-21] MEDS: CALCIUM/VITAMIN D (500/200) TAB PO (08:50)
[2018-04-21] MEDS: CLOPIDOGREL 75 MG TAB PO (08:51)
[2018-04-21] MEDS: ATORVASTATIN 20 MG TAB PO (08:51)
[2018-04-21] MEDS: CYANOCOBALAMIN 500 MCG TAB PO (09:00)
[2018-04-21] MEDS: BICALUTAMIDE 50 MG TAB PO (09:13)
== END 2018-04-21 13:15 | disposition home health service (06) | DRG 945 ==
LOC: VRC 04-10 10:26
PROC: F07Z5ZZ Bed Mobility Treatment (ICD-10-PCS; principal; 2018-04-07)
PROC: F07Z8ZZ Transfer Training Treatment (ICD-10-PCS; 2018-04-07)
PROC: F07Z9ZZ Gait Training/Functional Ambulation Treatment (ICD-10-PCS; 2018-04-07)
PROC: F08Z2ZZ Grooming/Personal Hygiene Treatment (ICD-10-PCS; 2018-04-07)
PROC: F08Z1ZZ Dressing Techniques Treatment (ICD-10-PCS; 2018-04-07)
PROC: F08Z0ZZ Bathing/Showering Techniques Treatment (ICD-10-PCS; 2018-04-07)
PROC: 5A1D70Z Performance of Urinary Filtration, Intermittent, Less than 6 Hours Per Day (ICD-10-PCS; 2018-04-08)
PROC: 0JPT3XZ Removal of Tunneled Vascular Access Device from Trunk Subcutaneous Tissue and Fascia, Percutaneous Approach (ICD-10-PCS; 2018-04-18)
PROC: 02PY33Z Removal of Infusion Device from Great Vessel, Percutaneous Approach (ICD-10-PCS; 2018-04-18)
DX: R53.81 Other malaise (principal); N18.6 End stage renal disease; G92 Toxic encephalopathy; J18.9 Pneumonia, unspecified organism; I13.2 Hypertensive heart and chronic kidney disease with heart failure and with stage 5 chronic kidney disease, or end stage renal disease; I38 Endocarditis, valve unspecified; B37.49 Other urogenital candidiasis; I50.30 Unspecified diastolic (congestive) heart failure; R65.10 Systemic inflammatory response syndrome (SIRS) of non-infectious origin without acute organ dysfunction; D63.1 Anemia in chronic kidney disease; E78.5 Hyperlipidemia, unspecified; F03.90 Unspecified dementia, unspecified severity, without behavioral disturbance, psychotic disturbance, mood disturbance, and anxiety; F32.9 Major depressive disorder, single episode, unspecified; H91.90 Unspecified hearing loss, unspecified ear; I95.1 Orthostatic hypotension; I25.10 Atherosclerotic heart disease of native coronary artery without angina pectoris; I34.0 Nonrheumatic mitral (valve) insufficiency; K21.9 Gastro-esophageal reflux disease without esophagitis; M19.90 Unspecified osteoarthritis, unspecified site; R55 Syncope and collapse; Z74.09 Other reduced mobility; I25.2 Old myocardial infarction; Z91.81 History of falling; Z99.2 Dependence on renal dialysis; Z95.5 Presence of coronary angioplasty implant and graft; Z87.891 Personal history of nicotine dependence; Z79.02 Long term (current) use of antithrombotics/antiplatelets; Z79.82 Long term (current) use of aspirin
CPT/HCPCS: 36589; 71045; 80048; 80053; 81003; 82270; 82728; 83540; 83735; 84100; 85014; 85018; 85025; 86706; 87081; 87086; 87340; 90935; 93005; 93306; 97110; 97112; 97116; 97150; 97163; 97167; 97530; 97535; 97542